=== PATIENT | female | born 1990 | race Caucasian/White ===

== ENCOUNTER 2016-12-13 18:08 | Emergency (ER) | payer SELFPAY ==
[~2016-12-13] VITALS: Ht 162.6 cm; Wt 127.5 kg
[~2016-12-13 18:08] MED LIST: MELO15TA14 PO; TRAM50TA2 PO
--- OUTSIDE RECORDS SUMMARY | 2016-12-13 18:13 | XMS REPORT | Continuity of Care Document ---
Author Author [facility] Organization [facility] Address Unknown Phone Unavailable Care Team Providers Care Senior Java Architect Name Role Phone Unverified, Unverified PCP Unavailable Source Comments Some departments are not documenting in the electronic medical record. If you do not see the information that you expected, contact Release of Information in the Health Information Management department at [phone] for further assistance in locating additional records.[facility] Active Allergies and Adverse Reactions Not on File Current Medications Not on file Active Problems Not on file Most Recent Encounters Date Type Specialty Providers Description 11/20/2016 Clinical High Risk Nuchal translucency of Support fetus on ultrasound (Primary Dx); Dichorionic diamniotic twin in first trimester Social History Tobacco Use Types Packs/Day Years Used Date Never Assessed Plan of Care Health Maintenance Due Date Last Done Comments Physical (Comprehensive) 1998 Exam Hpv Vaccines (#1) 2002 Pertussis Vaccine 2002 Tetanus Vaccine 2008 Cervical Cancer Screening 2012 Influenza Vaccine 06/21/2016 Results from Last 3 Months ULTRASOUND [facility] ORDER (11/20/2016)
--- NOTE | 2016-12-13 18:19 | ED Abdominal Pain ---
General Stated Complaint: RIGHT SIDE ABD PAIN;15 WEEKS Source of Information: Patient Exam Limitations: No Limitations History of Present Illness Time Seen By Provider: 18:18 Initial Comments To ER with right lower quadrant abdominal pain, epigastric pain and left lower quadrant abdominal pain. These are 3 separate locations of pain that began earlier this Afternoon after her transabdominal ultrasound "4d" done in [place]. She's had no complaints or difficulties with this or her last . She is 15 weeks' gestation with twins, . No cramping or vaginal discharge/vaginal bleeding. Timing/Duration: 1-2 Days Severity/Quality: Moderate Location: RUQ Radiation: No Radiation Associated Symptoms: Denies SymptomsNo Nausea/Vomiting Allergies and Home Medications Allergies Coded Allergies: Penicillins (Verified Allergy, Unknown, 09/12/15) acetaminophen (Verified Allergy, Unknown, 09/12/15) codeine (Verified Allergy, Unknown, 09/12/15) Home Medications Meloxicam 15 Mg Tablet #30 15 MG PO DAILY Prescribed by: BRYANT DE LA TORRE on 09/13/1546 Nitrofurantoin Monohyd/M-Cryst 100 Mg Capsule #14 1 TAB PO BID Prescribed by: PEGGY CRAIG on 12/13/16 1905 Tramadol HCl 50 Mg Tablet #20 50-100 MG PO Q6H PRN PRN rib pain Prescribed by: BRYANT DE LA TORRE on 09/13/1546 Review of Systems Constitutional: see HPI EENTM: No Symptoms Reported Respiratory: No Symptoms Reported Cardiovascular: No Symptoms Reported Gastrointestinal: See HPI Abdominal Pain Genitourinary: No Symptoms Reported Musculoskeletal: no symptoms reported Skin: no symptoms reported Psychiatric/Neurological: No Symptoms Reported Endocrine: No Symptoms Reported Hematologic/Lymphatic: No Symptoms Reported Past Fjqzjpe-Etcecy-Qstiat Hx Patient Social History Recent Foreign Travel: No Contact w/Someone Who Travel: No Seasonal Allergies Seasonal Allergies: No Surgeries HX Surgeries: Yes Surgeries: Adenoidectomy, Tonsillectomy Respiratory Hx Respiratory Disorders: No Cardiovascular Hx Cardiac Disorders: No Neurological Hx Neurological Disorders: No Genitourinary Hx Genitourinary Disorders: No Gastrointestinal Hx Gastrointestinal Disorders: No Musculoskeletal Hx Musculoskeletal Disorders: No Endocrine Hx Endocrine Disorders: No HEENT HX ENT Disorders: No Cancer Hx Cancer: No Psychosocial Hx Psychiatric Problems: No Integumentary HX Skin/Integumentary Disorder: No Blood Transfusions Hx Blood Disorders: No Adverse Reaction to a Blood Tr: No Physical Exam Vital Signs VS - Last 72 Hours, by Label 12/13/16 18:19 Temp 98.0 Pulse 100 Resp 16 B/P 143/93 Pulse Ox 98 Capillary Refill : General Appearance: WD/WN no apparent distress HEENT: PERRL/EOMI normal ENT inspection Neck: non-tender full range of motion Respiratory: no respiratory distress no accessory muscle use Gastrointestinal: normal bowel sounds non tender soft Extremities: normal range of motion non-tender Neurologic/Psychiatric: alert normal mood/affect oriented x 3 Skin: normal color warm/dry Progress/Results/Core Measures Results/Orders Lab Results Laboratory Tests Test 12/13/16 18:33 12/13/16 18:39 Range/Units Alanine Aminotransferase (ALT/SGPT) 53 0-55 U/L Albumin 3.4 3.2-4.5 G/DL Alkaline Phosphatase 48 40-136 U/L Anion Gap 10 5-14 MMOL/L Aspartate Amino Transf (AST/SGOT) 26 5-34 U/L BUN/Creatinine Ratio 16 Basophils # (Auto) 0.0 0.0-0.1 10^3/uL Basophils (%) (Auto) 0 0-10 % Blood Urea Nitrogen 9 7-18 MG/DL Calcium Level 9.4 8.5-10.1 MG/DL Carbon Dioxide Level 21 21-32 MMOL/L Chloride Level 105 98-107 MMOL/L Creatinine 0.58 L 0.60-1.30 MG/DL Eosinophils # (Auto) 0.0 0.0-0.3 10^3/uL Eosinophils (%) (Auto) 1 0-10 % Estimat Glomerular Filtration Rate > 60 Glucose Level 79 70-105 MG/DL Hematocrit 40 35-52 % Hemoglobin 13.9 11.5-16.0 G/DL Lymphocytes # (Auto) 1.8 1.0-4.0 X 10^3 Lymphocytes (%) (Auto) 20 12-44 % Mean Corpuscular Hemoglobin 28 25-34 PG Mean Corpuscular Hemoglobin Concent 35 32-36 G/DL Mean Corpuscular Volume 79 L 80-99 FL Mean Platelet Volume 10.6 H 7.4-10.4 FL Monocytes # (Auto) 0.5 0.0-1.0 X 10^3 Monocytes (%) (Auto) 6 0-12 % Neutrophils # (Auto) 6.5 1.8-7.8 X 10^3 Neutrophils (%) (Auto) 74 42-75 % Platelet Count 203 130-400 10^3/uL Potassium Level 3.9 3.6-5.0 MMOL/L Red Blood Count 5.04 4.35-5.85 10^6/uL Red Cell Distribution Width 13.1 10.0-14.5 % Sodium Level 136 135-145 MMOL/L Total Bilirubin 0.2 0.1-1.0 MG/DL Total Protein 6.8 6.4-8.2 G/DL White Blood Count 8.9 4.3-11.0 10^3/uL Urine Bacteria FEW H /HPF Urine Bilirubin NEGATIVE NEGATIVE Urine Casts NONE /LPF Urine Clarity CLEAR Urine Color YELLOW Urine Crystals NONE /LPF Urine Culture Indicated NO Urine Glucose (UA) NEGATIVE NEGATIVE Urine Ketones NEGATIVE NEGATIVE Urine Leukocyte Esterase 1+ H NEGATIVE Urine Mucus NEGATIVE /LPF Urine Nitrite NEGATIVE NEGATIVE Urine Protein NEGATIVE NEGATIVE Urine RBC NONE /HPF Urine RBC (Auto) NEGATIVE NEGATIVE Urine Specific [place] 1.025 H 1.016-1.022 Urine Squamous Epithelial Cells 10-25 H /HPF Urine Urobilinogen NORMAL NORMAL MG/DL Urine WBC 5-10 H /HPF Urine pH 5 5-9 My Orders Orders-PEGGY CRAIG APRN Ua Culture If Indicated (12/13/16 18:17) Cbc With Automated Diff (12/13/16 18:17) Comprehensive Metabolic Panel (12/13/16 18:17) Acetaminophen Tablet (Tylenol Tablet) (12/13/16 18:45) Medications Given in ED Current Medications Medications Dose Ordered Sig/Suri Route Start Time Stop Time Status Last Admin Dose Admin Acetaminophen 1,000 mg ONCE ONCE PO 12/13/16 18:45 12/13/16 18:46 DC 12/13/16 18:51 1,000 MG Vital Signs/I&O Vital Sign - Last 12Hours 12/13/16 18:19 Temp 98.0 Pulse 100 Resp 16 B/P 143/93 Pulse Ox 98 Departure Impression Impression: Primary Impression: Urinary tract infection Qualified Code: N30.00 - Acute cystitis without hematuria Additional Impression: Pain of round ligament Disposition: 01 HOME, SELF-CARE Condition: Stable Departure-Patient Inst. Decision time for Depature: 19:05 Referrals: MINDA PAYTON MD (PCP/Family) Primary Care Physician Patient Instructions: Urinary Tract Infection, Adult (DC) Add. Discharge Instructions: 1. Return to ER for any concerns 2. Follow-up with your doctor next week 3. Antibiotics as directed Scripts Nitrofurantoin Monohyd/M-Cryst (Macrobid 100 mg Capsule)100 Mg Capsule1 Tab PO BID #14 CAP Prov:PEGGY CRAIG APRN 12/13/16 Work/School Note: Work Release Form Date Seen in the Emergency Department: Dec 13, 2016 Return to Work: Dec 14, 2016 Other Restrictions Listed Below: No lifting greater than 5 pounds until cleared by physician Copy Copies To 1: ROSAS MEZA MD, PETER J APRN Dec 13, 2016 18:19
[2016-12-13 18:43] LABS: BASOPHILS % (AUTO) 0 % (0-10); EOSINOPHILS % (AUTO) 1 % (0-10); LYMPHOCYTES # (AUTO) 1.8 X 10^3 (1.0-4.0); LYMPHOCYTES % (AUTO) 20 % (12-44); MEAN CORPUSCULAR HEMOGLOBIN 28 PG (25-34); MEAN CORPUSCULAR HGB CONC 35 G/DL (32-36); MEAN CORPUSCULAR VOLUME 79 FL (80-99); MEAN PLATELET VOLUME 10.6 FL (7.4-10.4); MONOCYTES # (AUTO) 0.5 X 10^3 (0.0-1.0); MONOCYTES % (AUTO) 6 % (0-12); NEUTROPHILS # (AUTO) 6.5 X 10^3 (1.8-7.8); NEUTROPHILS % (AUTO) 74 % (42-75); PLATELET COUNT 203 10^3/uL (130-400); RED BLOOD COUNT 5.04 10^6/uL (4.35-5.85); RED CELL DISTRIBUTION WIDTH 13.1 % (10.0-14.5); WHITE BLOOD COUNT 8.9 10^3/uL (4.3-11.0)
[2016-12-13] MEDS ORDERED: ACETAMINOPHEN 500 MG TAB (TYLENOL) PO ONE (18:45)
[2016-12-13 18:47] LABS: BILIRUBIN,URINE NEGATIVE (NEGATIVE); KETONES,URINE NEGATIVE (NEGATIVE); LEUKOCYTE ESTERASE ,URINE 1+ (NEGATIVE); NITRITE,URINE NEGATIVE (NEGATIVE); PH,URINE 5 (5-9); PROTEIN,URINE NEGATIVE (NEGATIVE); UROBILINOGEN,URINE NORMAL (NORMAL)
[2016-12-13 19:03] LABS: ALANINE AMINOTRANSFERASE 53 U/L (0-55); ALBUMIN 3.4 G/DL (3.2-4.5); ASPARTATE AMINO TRANSFERASE 26 U/L (5-34); BILIRUBIN,TOTAL 0.2 MG/DL (0.1-1.0); BLOOD UREA NITROGEN 9 MG/DL (7-18); BUN/CREATININE RATIO 16; CALCIUM 9.4 MG/DL (8.5-10.1); CARBON DIOXIDE 21 MMOL/L (21-32); CREATININE SERUM 0.58 MG/DL (0.60-1.30); GFR ESTIMATED > 60; GLUCOSE 79 MG/DL (70-105); TOTAL PROTEIN 6.8 G/DL (6.4-8.2)
[2016-12-13] MEDS ORDERED: NITR-65 PO (19:05)
[2016-12-13 19:12] LABS: ANION GAP 10 MMOL/L (5-14); CHLORIDE 105 MMOL/L (98-107); POTASSIUM 3.9 MMOL/L (3.6-5.0); SODIUM 136 MMOL/L (135-145)
[2016-12-13 20:05] VITALS: BP 0/0
== END 2016-12-13 20:05 | disposition home or self-care (01) ==
LOC: EDUNIT# 18:08 → ER 18:09
DX: O23.42 Unspecified infection of urinary tract in pregnancy, second trimester (principal); O26.892 Other specified pregnancy related conditions, second trimester; Z3A.15 15 weeks gestation of pregnancy
CPT/HCPCS: 36415; 80053; 81000; 85025; 99282

== ENCOUNTER 2017-01-30 20:55 | Emergency (ER) | payer SELFPAY ==
[~2017-01-30] VITALS: Ht 162.6 cm; Wt 127.0 kg
[~2017-01-30 20:55] MED LIST changes: +NITR-65 PO
[2017-01-30] MEDS ORDERED: ASPI-586 PO (21:11)
[2017-01-30] MEDS ORDERED: PRENATAL (21:11)
[2017-01-30] MEDS ORDERED: CEFD300C3 PO (21:14)
--- NOTE | 2017-01-30 21:14 | ED Cough/URI ---
General Chief Complaint: Cough/Cold/Flu Symptoms Stated Complaint: COUGH/EAR ACHE Nursing Triage Note: PT C/O COUGH/CONGESTION X 1 WEEK. RIGHT EAR ACHE STARTING TODAY. BODY ACHES, HEADACHE. Source: patient Exam Limitations: no limitations History of Present Illness Time seen by provider: 21:11 Initial Comments To ER with reports of a cough and right earache for one week. The cough started first and was initially productive but is no longer productive. She denies sore throat or rhinorrhea. She started with a right earache about 2 days ago. She also has body aches. She is 22 weeks gestation with twins. Timing/Duration: getting worse Severity/Quality: productive cough Associated Symptoms: cough, fever/chills, shortness of breath Allergies and Home Medications Allergies Coded Allergies: Penicillins (Verified Allergy, Unknown, 09/12/15) acetaminophen (Verified Allergy, Unknown, 09/12/15) codeine (Verified Allergy, Unknown, 09/12/15) Home Medications Meloxicam 15 Mg Tablet, 15 MG PO DAILY, #30 Ref 0 Prescribed by: BRYANT DE LA TORRE on 09/13/15 0047 Nitrofurantoin Monohyd/M-Cryst 100 Mg Capsule, 1 TAB PO BID, #14 Prescribed by: PEGGY CRAIG on 12/13/16 1905 Tramadol HCl 50 Mg Tablet, 50-100 MG PO Q6H PRN for rib pain, #20 Ref 0 Prescribed by: BRYANT DE LA TORRE on 09/13/1546 Constitutional: see HPI, No chills, No fever EENTM: ear pain, see HPI Respiratory: see HPI, cough Cardiovascular: no symptoms reported Genitourinary: no symptoms reported Expected Date of Delivery: Jun 01, 2017 Musculoskeletal: no symptoms reported Skin: no symptoms reported Psychiatric/Neurological: No Symptoms Reported Hematologic/Lymphatic: No Symptoms Reported Past Zzfhwhz-Zdhfod-Ewbvvp Hx Patient Social History Alcohol Use: Denies Use Recreational Drug Use: No Smoking Status: Never a Smoker Recent Foreign Travel: No Contact w/Someone Who Travel: No Recent Infectious Disease Expo: No Recent Hopitalizations: No Immunizations Up To Date Date of Influenza Vaccine: Aug 21, 2016 Seasonal Allergies Seasonal Allergies: No Surgeries HX Surgeries: Yes Surgeries: Adenoidectomy, Tonsillectomy Respiratory Hx Respiratory Disorders: No Cardiovascular Hx Cardiac Disorders: No Neurological Hx Neurological Disorders: No Reproductive System : Yes Genitourinary Hx Genitourinary Disorders: No Gastrointestinal Hx Gastrointestinal Disorders: No Musculoskeletal Hx Musculoskeletal Disorders: No Endocrine Hx Endocrine Disorders: No HEENT HX ENT Disorders: No Cancer Hx Cancer: No Psychosocial Hx Psychiatric Problems: No Integumentary HX Skin/Integumentary Disorder: No Blood Transfusions Hx Blood Disorders: No Adverse Reaction to a Blood Tr: No Physical Exam Vital Signs Vital Sign - Last 12Hours 01/30/17 21:06 Temp 99.8 Pulse 100 Resp 16 B/P (MAP) 148/83 Capillary Refill : Less Than 3 Seconds General Appearance: WD/WN, no apparent distress Eyes: Bilateral Eye EOMI, Bilateral Eye Normal Inspection, Bilateral Eye PERRL HEENT: PERRL/EOMI, normal ENT inspection, pharynx normal, TM abnormal (R) (red and bulging) Neck: non-tender, full range of motion, No lymphadenopathy (R), No lymphadenopathy (L) Respiratory: lungs clear, normal breath sounds, no respiratory distress, no accessory muscle use Cardiovascular: regular rate, rhythm, no murmur Gastrointestinal: normal bowel sounds, non tender, soft Neurologic/Psychiatric: alert, normal mood/affect, oriented x 3 Skin: normal color, warm/dry Progress/Results/Core Measures Results/Orders My Orders Orders - PEGGY CRAIG APRN Cefdinir Capsule (Omnicef Capsule) (01/30/17 21:15) Hydrocodone/Apap 5/325 Tablet (Lortab 5 (01/30/17 21:15) Vital Signs/I&O Vital Sign - Last 12Hours 01/30/17 21:06 Temp 99.8 Pulse 100 Resp 16 B/P (MAP) 148/83 Blood Pressure Mean: 104 Departure Impression Impression: Primary Impression: Otitis media Additional Impression: Bronchitis Disposition: 01 HOME, SELF-CARE Condition: Stable Departure-Patient Inst. Decision time for Depature: 21:13 Referrals: NO,LOCAL PHYSICIAN (PCP) Primary Care Physician Patient Instructions: Ear Infections (Otitis Media) (DC) Add. Discharge Instructions: 1. Return to ER for any concerns 2. Follow-up with your manager finance later this week 3. Antibiotics as directed. Continue to use Tylenol as needed for discomfort or fevers All discharge instructions reviewed with patient and/or family. Voiced understanding. Scripts Cefdinir (Cefdinir) 300 Mg Capsule 300 MG PO BID, #14 CAP Prov: PEGGY CRAIG APRN 01/30/17 PEGGY CRAIG APRN Jan 30, 2017 21:14
[2017-01-30] MEDS ORDERED: CEFDINIR 300 MG (OMNICEF) CAP PO ONE (21:15)
[2017-01-30] MEDS ORDERED: HYDROcodone/APAP 5 MG/325 MG (LORTAB) TAB PO ONE (21:15)
[2017-01-30 21:35] VITALS: BP 137/86
== END 2017-01-30 21:35 | disposition home or self-care (01) ==
LOC: EDUNIT# 20:55 → ER 20:58
DX: H66.91 Otitis media, unspecified, right ear (principal); O99.512 Diseases of the respiratory system complicating pregnancy, second trimester; J40 Bronchitis, not specified as acute or chronic; Z3A.22 22 weeks gestation of pregnancy
CPT/HCPCS: 99282

== ENCOUNTER → 2017-03-05 | Outpatient (CLI) | payer MEDICAID ==
[~2017-03-05] MED LIST changes: +ASPI-586 PO; +CEFD300C3 PO; +PRENATAL
--- NOTE | 2017-03-05 15:00 | Diagnostic Imaging Report ---
INDICATION: Followup dichorionic diamniotic twin gestation. TECHNIQUE: Multiple real-time grayscale images were obtained over the gravid uterus. COMPARISON: 10/18/2016. FINDINGS: There are 2 live intrauterine pregnancies which were previously characterized as dichorionic and diamniotic. Baby A: Baby A is located on the maternal right and closer to the cervix, and is in cephalic presentation. Baby A has an average ultrasound age of 27 weeks and 5 days. The amount of amniotic fluid appears appropriate. Baby A heart rate is 136 beats per minute. Baby B: Baby B is on the left and near the fundus, and is in breech presentation. Baby B has average ultrasound age of 27 weeks and 3 days. The amount of amniotic fluid appears appropriate. Baby B heart rate is 142 beats per minute. Baby A biometric measurements are as follows: Biparietal 6.95 cm, age 28 weeks 0 days. Head circumference 25.67 cm, age 28 weeks 0 days. Abdominal circumference 23.29 cm, age 27 weeks 5 days. Femur length 5.04 cm, age 27 weeks 1 days. Sonographic estimate age: 27 weeks 5 days. Sonographic estimated date of delivery: 05/30/2017. Estimated Weight: 1081 gm (+/- 158 gm). LMP percentile: 39%. heart rate: 136 beats per minute. number: 1 of 2. IMPRESSION: 1. Live twin intrauterine pregnancies with concordant growth. Dictated by: Dictated on workstation # [id number]
== END ==
LOC: RAD 09:39
PROVIDERS: ATTEND Obstetrics & Gynecology
DX: O30.042 Twin pregnancy, dichorionic/diamniotic, second trimester (principal); Z3A.27 27 weeks gestation of pregnancy
CPT/HCPCS: 76810; 76816

== ENCOUNTER 2017-03-29 15:52 | Outpatient (RCR) | payer MEDICAID ==
[2017-04-12] MEDS ORDERED: PREN1TAB86 PO (08:14)
== END 2017-06-27 | disposition home or self-care (01) ==
LOC: LAB 15:52
PROVIDERS: ATTEND Family Medicine
DX: O12.13 Gestational proteinuria, third trimester (principal); O30.043 Twin pregnancy, dichorionic/diamniotic, third trimester
CPT/HCPCS: 84156

== ENCOUNTER → 2017-04-08 | Outpatient (CLI) | payer MEDICAID ==
--- NOTE | 2017-04-08 12:08 | Diagnostic Imaging Report ---
INDICATION: Twin , followup with biophysical profile evaluation. TECHNIQUE: Multiple real-time grayscale images were obtained over the gravid uterus. COMPARISON: 03/05/2017 FINDINGS: Fetus A is vertex and to the right of the uterus. Its heart rate is 135 beats per minute. The placenta is anterior. No placenta previa. Total JEANNIE is 6.9 cm. Fetus B heart rate is 146 beats per minutes. The placenta is posterior. No placenta previa. Biophysical profile parameters are evaluated for both babies with all criteria met for total score of 8 out of 8. Biometrical measurements are as follows: Biparietal 7.6 cm, age 30 weeks 4 days, at 5 percentile. Head circumference 28.9 cm, age 31 weeks 6 days, at 8 percentile. Abdominal circumference 28.1 cm, age 32 weeks 2 days, at 45 percentile. Femur length 6.3 cm, age 32 weeks 6 days, at 51 percentile. Sonographic estimate age: 32 weeks 0 days. Sonographic estimated date of delivery: 06/03/17. Estimated Weight: 1916 gm (+/- 280 gm). LMP percentile: 35%. heart rate: 135 beats per minute. number: 1 of 2. For Fetus B: The growth parameters are: Biparietal diameter: 32 weeks and 2 days, at 38 percentile. Head circumference: 33 weeks and 0 days, at 30 percentile. Abdominal circumference: 32 weeks and 2 days, at 46 percentile. Femur length: 32 weeks and 3 days, at 38 percentile. These average at: 32 weeks and 4 days concordant with gestational age of 32 weeks and 2 days based on VÍCTOR of 06/01/2017. IMPRESSION: 1. Live twin . 2. Biophysical profile score is 8 out of 8. The amniotic fluid index is within normal limits however it is less than the prior exam on both sides. 3. The biparietal diameter is at the 5th percentile and the head circumference is at the 8th percentile in baby A. Dictated by: Dictated on workstation # [id number]
== END ==
LOC: RAD 10:07
PROVIDERS: ATTEND Obstetrics & Gynecology
DX: Z36 Encounter for antenatal screening of mother (principal); O30.043 Twin pregnancy, dichorionic/diamniotic, third trimester; Z3A.32 32 weeks gestation of pregnancy
CPT/HCPCS: 76805; 76810; 76819

== ENCOUNTER 2017-04-11 21:22 | Outpatient (CLI) | payer MEDICAID ==
[~2017-04-11] VITALS: Ht 162.6 cm; Wt 133.9 kg
[2017-04-11 22:00] VITALS: BP 130/65
[2017-04-11 22:08] LABS: BILIRUBIN,URINE NEGATIVE (NEGATIVE); KETONES,URINE 1+ (NEGATIVE); LEUKOCYTE ESTERASE ,URINE 1+ (NEGATIVE); NITRITE,URINE NEGATIVE (NEGATIVE); PH,URINE 6 (5-9); PROTEIN,URINE 2+ (NEGATIVE); UROBILINOGEN,URINE 1 MG/DL (NORMAL)
[2017-04-11 22:15] VITALS: BP 126/62
[2017-04-11 22:30] VITALS: BP 121/60
[2017-04-11 22:45] VITALS: BP 139/67
[2017-04-11 23:00] VITALS: BP 136/69
[2017-04-11] MEDS ORDERED: BETAMETHASONE ACE/NA PHOS 6 MG/ML (CELESTONE SOLUSPAN) ONE (23:13)
[2017-04-11 23:45] VITALS: BP 147/106
[2017-04-12] VITALS (11 sets, daily range): BP systolic 102–148; BP diastolic 49–116
--- NOTE | 2017-04-12 00:02 | History & Physical-OB ---
OB - Chief Complaint & HPI Date/Time Date of Admission: Date of Admission: 04/11/17 Time Seen by Provider: 23:55 Chief Complaint/History OB-Reason for Admission/Chief: Hx : 2 Gestational Age in Weeks: 32 Gestational Age in Days: 5 Other reason for admission: Patient of Dr. Del Cid'jose presents with elevated BP from monitoring at home and LE swelling. Reports no other concerns, ctxs, vb, lof. Admission Nurse Assessment Rev: Yes History of Labs AB neg RI RPR NR HBsAg nR HIV NR GC neg GBS unknown Allergies and Home Medications Allergies Coded Allergies: Penicillins (Verified Allergy, Unknown, 09/12/15) acetaminophen (Verified Allergy, Unknown, 09/12/15) codeine (Verified Allergy, Unknown, 09/12/15) Home Medications Aspirin 81 Mg Tablet.dr, 81 MG PO DAILY, (Reported) Cefdinir 300 Mg Capsule, 300 MG PO BID, #14 Prescribed by: PEGGY CRAIG on 01/30/172113 [ ] , (Reported) OB - History Hx of Present Care: Yes Ultrasounds: Normal mid trimester US (di di twins) Obstetrical Complications: Gestational Hypertension Medical Complications: Other (BMI 50 morbid obesity) Delivery History Hx Blood Disorders: No Adverse Rxn to Tranfusion: No Patient Past Medical History RA Social History/Family History Recent Infectious Disease Expo: No Immunizations Date of Influenza Vaccine: Aug 21, 2016 OB - Admission Exam Physical Exam Date Seen by Provider: Apr 12, 2017 Time Seen by Provider: 23:55 HEENT: NCAT Heart: Rhythm Normal Lungs: Clear Abdomen: Gravid Cervical Dilatation: 2cm Effacement: 75% Station: -2 Membranes: Intact Heart Rate: 130's (140 twin b) Accelerations: Accelerations Present Decelerations: No Decelerations Short Term Variability: Present Nursing Home Variability: Average (6-25) Contractions on Admission: < 5 Minutes Apart Intensity: Mild Labs Laboratory Tests Test 04/11/17 21:45 Range/Units Urine Color YELLOW Urine Clarity CLEAR Urine pH 6 5-9 Urine Specific [place] 1.025 H 1.016-1.022 Urine Protein 2+ H NEGATIVE Urine Glucose (UA) 3+ H NEGATIVE Urine Ketones 1+ H NEGATIVE Urine Nitrite NEGATIVE NEGATIVE Urine Bilirubin NEGATIVE NEGATIVE Urine Urobilinogen 1 NORMAL MG/DL Urine Leukocyte Esterase 1+ H NEGATIVE Urine RBC (Auto) NEGATIVE NEGATIVE Urine RBC NONE /HPF Urine WBC 2-5 /HPF Urine Squamous Epithelial Cells 10-25 H /HPF Urine Crystals NONE /LPF Urine Bacteria FEW H /HPF Urine Casts NONE /LPF Urine Mucus LARGE H /LPF Urine Culture Indicated NO OB - Assessment/Plan/Diagnosis Plan Other Plan Patient admitted for obs, BMZ given. BP monitoring and PIH labs drawn. WIll consider dc in morning if stabilize contraction pattern, and BP. Discharge Diagnosis Diagnosis: 26 yo @ 32.5 Di Di Twins Uterine contractions- dialated to 2 Gestational HTN- w/o sig. protienuria BMI 50 GBS unknown TOYIN AMIN DO Apr 12, 2017 00:02
[2017-04-12 00:30] LABS: BASOPHILS % (AUTO) 0 % (0-10); EOSINOPHILS # (AUTO) 0.1 10^3/uL (0.0-0.3); EOSINOPHILS % (AUTO) 1 % (0-10); LYMPHOCYTES # (AUTO) 1.7 X 10^3 (1.0-4.0); LYMPHOCYTES % (AUTO) 21 % (12-44); MEAN CORPUSCULAR HEMOGLOBIN 23 PG (25-34); MEAN CORPUSCULAR HGB CONC 31 G/DL (32-36); MEAN CORPUSCULAR VOLUME 73 FL (80-99); MEAN PLATELET VOLUME 11.3 FL (7.4-10.4); MONOCYTES # (AUTO) 0.6 X 10^3 (0.0-1.0); MONOCYTES % (AUTO) 7 % (0-12); NEUTROPHILS # (AUTO) 6.1 X 10^3 (1.8-7.8); NEUTROPHILS % (AUTO) 72 % (42-75); PLATELET COUNT 197 10^3/uL (130-400); RED BLOOD COUNT 4.31 10^6/uL (4.35-5.85); WHITE BLOOD COUNT 8.5 10^3/uL (4.3-11.0)
[2017-04-12] MEDS ORDERED: CALCIUM CARBONATE 500 MG (TUMS) TAB.CHEW PO ONE (00:45)
[2017-04-12 00:47] LABS: ALANINE AMINOTRANSFERASE 15 U/L (0-55); ALBUMIN 2.6 GM/DL (3.2-4.5); ANION GAP 12 MMOL/L (5-14); ASPARTATE AMINO TRANSFERASE 14 U/L (5-34); BILIRUBIN,TOTAL 0.2 MG/DL (0.1-1.0); BLOOD UREA NITROGEN 9 MG/DL (7-18); BUN/CREATININE RATIO 16 (0-20); CALCIUM 8.7 MG/DL (8.5-10.1); CARBON DIOXIDE 17 MMOL/L (21-32); CHLORIDE 108 MMOL/L (98-107); CREATININE SERUM 0.58 MG/DL (0.60-1.30); GFR ESTIMATED > 60; GLUCOSE 115 MG/DL (70-105); HEMOLYSIS 0 (-100-29); ICTERUS 0.4 (-100-1.9); LIPEMIA 21 (-100-49); POTASSIUM 4.1 MMOL/L (3.6-5.0); SODIUM 137 MMOL/L (135-145); TOTAL PROTEIN 5.8 GM/DL (6.4-8.2); URIC ACID 3.9 MG/DL (2.6-7.2)
[2017-04-12 00:49] LABS: PROTEIN/CREATININE RATIO 0.17
[2017-04-12] MEDS ORDERED: LACTATED RINGERS 1,000 ML IV SCH (01:00)
[2017-04-12] MEDS ORDERED: NIFEdipine 10 MG CAPS (WOMEN'S SERVICES ONLY!!!) PO ONE ×3 (01:47→07:59)
[2017-04-12] MEDS ORDERED: ACETAMINOPHEN 500 MG TAB (TYLENOL) PO ONE (03:15)
[2017-04-12] MEDS ORDERED: LACTATED RINGERS 1,000 ML IV ONE (05:30)
[2017-04-12] MEDS ORDERED: CALCIUM CARBONATE 500 MG (TUMS) TAB.CHEW ONE (06:20)
[2017-04-12] MEDS ORDERED: CALCIUM CARBONATE 500 MG (TUMS) TAB.CHEW PO NR (06:30)
[2017-04-12] MEDS ORDERED: NIFEdipine ER 30 MG (PROCARDIA XL) TAB PO ONE (07:30)
--- NOTE | 2017-04-12 07:51 | Progress Note-Standard ---
Standard Progress Note Progress Notes/Assess & Plan Date Seen 04/12/17 Time Seen by Provider: 07:51 Assess & Plan/Chief Complaint HD#2 Ariana is a 26 y/o @ 32w6d by L=9 well known to me from clinic who was admitted overnight by my partner Dr. Sinha. This AM, upon my arrival Ariana is crying through ctx. She initially presented to the hospital due to concerns for HTN at home with swelling and headache. She then began wander and cervix was changed from 2 to 2.5/1/-2, with contractions q 3-4 mins on the monitor (although they are difficult to trace). O: VS - Last 72 Hours, by Label 04/11/17 04/11/17 04/11/17 04/11/17 22:00 22:15 22:30 22:45 Temp 99.7 Pulse 106 100 96 103 Resp 18 18 18 18 B/P (MAP) 130/65 126/62 121/60 139/67 Pulse Ox 99 98 O2 Delivery Room Air Room Air Room Air 04/11/17 04/11/17 04/12/17 04/12/17 23:00 23:45 00:00 01:00 Pulse 97 92 93 Resp 18 18 18 18 B/P (MAP) 136/69 147/106 122/65 O2 Delivery Room Air Room Air Room Air Room Air 04/12/17 04/12/17 04/12/17 04/12/17 02:00 03:00 04:00 05:00 Pulse 86 106 121 106 Resp 18 18 18 18 B/P (MAP) 133/68 102/52 133/73 129/68 O2 Delivery Room Air Room Air Room Air Room Air 04/12/17 04/12/17 04/12/17 06:00 06:20 07:00 Pulse 106 100 101 Resp 18 18 18 B/P (MAP) 119/66 148/116 128/49 O2 Delivery Room Air Room Air Room Air Gen: Moderate distress, crying with contractions Abd: Soft, nttp, gravid Ext: 1+ pitting edema to mid tibia bilaterally SVE: 2+/1/-2, baby A cephalic TOCO: 3/10 with uterine irritability (difficulty tracing) Fetus A: 120-125/mod duy/reactive Fetus B: 125-130/mod duy/reactive Laboratory Tests Test 04/11/17 21:45 04/12/17 00:30 Range/Units Urine Color YELLOW Urine Clarity CLEAR Urine pH 6 5-9 Urine Specific [place] 1.025 H 1.016-1.022 Urine Protein 2+ H 38 H 6-12 MG/DL Urine Glucose (UA) 3+ H NEGATIVE Urine Ketones 1+ H NEGATIVE Urine Nitrite NEGATIVE NEGATIVE Urine Bilirubin NEGATIVE NEGATIVE Urine Urobilinogen 1 NORMAL MG/DL Urine Leukocyte Esterase 1+ H NEGATIVE Urine RBC (Auto) NEGATIVE NEGATIVE Urine RBC NONE /HPF Urine WBC 2-5 /HPF Urine Squamous Epithelial Cells 10-25 H /HPF Urine Crystals NONE /LPF Urine Bacteria FEW H /HPF Urine Casts NONE /LPF Urine Mucus LARGE H /LPF Urine Culture Indicated NO Urine Creatinine 224 H 30-125 MG/DL Urine Protein/Creatinine Ratio 0.17 A/P: 26 y/o @ 32w6d by L=9 well known to me from clinic who was admitted overnight by my partner Dr. Sinha - please see his H&P for complete details. Di/di twin gestation Class III obesity (BMI 51) Possible cHTN (BPs normal this , documented elevated outside of , Pro:Cr 0.07 at start of and HELLP labs unremarkable) vs gestational HTN H/o GDM (normal early A1C, 1 hr GTT normal at 25 wga) +Chlamydia this (neg LASHELL) Anxiety/depression on no meds Twin B with reversed ductus on NT (normal echo) Twin A with head circumference 3%tile at 32 wga ([facility] sono pending) Reviewed course thus far - has received BTMZ and procardia (one dose at 0155 this AM). Upon my arrival, Ariana is in significant pain with contractions. I am concerned that this along with her (somewhat minimal) cervical change represents PTL and I explained to Ariana that our target gestational age at delivery at [facility] is 34 wga due to our limited nursery capabilities, and I would recommend transfer to a tertiary care facility with NICU. She understands. Just had growth ultrasound at [facility] this Saturday due to concern for abnormal head growth so will defer that at this time. Will start ampicillin, continue oral procardia (20 mg ordered now) and discuss transfer to (Ariana prefers this as she has been seen there). I did review with her that her HELLP labs are unremarkable; she has had one treatable BP (148 /116) which resolved subsequently without treatment overnight. Labs Laboratory Tests 04/11/17 00:20 ROSAS MEZA MD Apr 12, 2017 07:51
[2017-04-12] MEDS ORDERED: ceFAZolin 2 GM/50 ML NS 50 ML ONE (08:00)
[2017-04-12] MEDS ORDERED: PREN1TAB86 PO (08:14)
[2017-04-12] MEDS ORDERED: NIFEdipine 10 MG CAPS (WOMEN'S SERVICES ONLY!!!) PO NR (08:15)
[2017-04-12] MEDS ORDERED: ceFAZolin 2 GM/50 ML NS 50 ML IV NR (08:15)
[2017-04-12] MEDS ORDERED: BETAMETHASONE ACE/NA PHOS 6 MG/ML (CELESTONE SOLUSPAN) IM SCH (09:00)
== END 2017-04-12 09:45 | disposition designated cancer center or children's hospital (05) ==
LOC: WSo 21:22 → LDRP 21:22 → WSo 04-12 09:45
PROVIDERS: ATTEND Obstetrics & Gynecology
DX: O60.03 Preterm labor without delivery, third trimester (principal); O30.043 Twin pregnancy, dichorionic/diamniotic, third trimester; O99.213 Obesity complicating pregnancy, third trimester; E66.9 Obesity, unspecified; Z68.43 Body mass index [BMI] 50.0-59.9, adult; O99.343 Other mental disorders complicating pregnancy, third trimester; F32.9 Major depressive disorder, single episode, unspecified; F41.9 Anxiety disorder, unspecified; Z3A.32 32 weeks gestation of pregnancy
CPT/HCPCS: 36415; 80053; 81000; 82570; 84156; 84550; 85025; 96361; 96372; 96374; 99214

== ENCOUNTER 2017-04-15 09:59 | Outpatient (CLI) | payer MEDICAID ==
[~2017-04-15] VITALS: Ht 162.6 cm; Wt 136.2 kg
[2017-04-15] VITALS (9 sets, daily range): BP systolic 108–134; BP diastolic 44–72
[~2017-04-15 09:59] MED LIST changes: +PREN1TAB86 PO
[2017-04-15 11:18] LABS: PROTEIN/CREATININE RATIO 0.28
[2017-04-15 11:19] LABS: BASOPHILS % (AUTO) 0 % (0-10); EOSINOPHILS % (AUTO) 0 % (0-10); LYMPHOCYTES % (AUTO) 7 % (12-44); MEAN CORPUSCULAR HEMOGLOBIN 23 PG (25-34); MEAN CORPUSCULAR HGB CONC 31 G/DL (32-36); MEAN CORPUSCULAR VOLUME 73 FL (80-99); MEAN PLATELET VOLUME 11.9 FL (7.4-10.4); MONOCYTES # (AUTO) 1.1 X 10^3 (0.0-1.0); MONOCYTES % (AUTO) 8 % (0-12); NEUTROPHILS # (AUTO) 11.6 X 10^3 (1.8-7.8); NEUTROPHILS % (AUTO) 84 % (42-75); PLATELET COUNT 206 10^3/uL (130-400); RED BLOOD COUNT 4.05 10^6/uL (4.35-5.85); RED CELL DISTRIBUTION WIDTH 15.5 % (10.0-14.5); WHITE BLOOD COUNT 13.8 10^3/uL (4.3-11.0)
[2017-04-15 11:36] LABS: ANISOCYTOSIS SLIGHT; BAND NEUTROPHILS 4 %; BASOPHILS % (MANUAL) 0 %; EOSINOPHILS % (MANUAL) 0 %; LYMPHOCYTES % (MANUAL) 9 %; MICROCYTOSIS SLIGHT; NEUTROPHILS % (MANUAL) 79 %
[2017-04-15 11:49] LABS: ALANINE AMINOTRANSFERASE 60 U/L (0-55); ANION GAP 8 MMOL/L (5-14); ASPARTATE AMINO TRANSFERASE 44 U/L (5-34); BILIRUBIN,TOTAL 0.3 MG/DL (0.1-1.0); BLOOD UREA NITROGEN 8 MG/DL (7-18); BUN/CREATININE RATIO 14 (0-20); CARBON DIOXIDE 24 MMOL/L (21-32); CHLORIDE 107 MMOL/L (98-107); CREATININE SERUM 0.57 MG/DL (0.60-1.30); GFR ESTIMATED > 60; GLUCOSE 112 MG/DL (70-105); HEMOLYSIS -1 (-100-29); ICTERUS 0.4 (-100-1.9); LACTATE DEHYDROGENASE 431 U/L (125-220); LIPEMIA 1 (-100-49); POTASSIUM 3.8 MMOL/L (3.6-5.0); SODIUM 139 MMOL/L (135-145); TOTAL PROTEIN 6.6 GM/DL (6.4-8.2)
--- NOTE | 2017-04-15 11:51 | Diagnostic Imaging Report ---
PROCEDURE: CT angiography of the chest with contrast. TECHNIQUE: Multiple contiguous axial images were obtained through the chest after uneventful bolus administration of intravenous contrast. Reconstructed CTA MIP acquisitions were also performed. INDICATION: Chest pain. Tachycardia. Shortness of breath. Concern for PE. 125 ML of Omnipaque 350 is administered intravenously. FINDINGS: Please note that there is breathing motion artifact which could obscure particularly subtle abnormality. Moderate opacification of the pulmonary arteries are seen. There is no central pulmonary embolism. Multiple peripheral branches are obscured by the motion artifact with no definitive pulmonary embolism identified. The thoracic aorta is normal in caliber. The heart size is normal. No pericardial effusion. There is a small left pleural effusion and minimal right pleural effusion. Patchy areas of consolidation in the left lung worse in the midlung zone is seen with minimal right basilar consolidation also seen. There is no mediastinal mass or significant lymphadenopathy in the mediastinum or peter. The osseous structures appear grossly unremarkable. IMPRESSION: 1. Asymmetric patchy consolidation in the lungs mostly on the left side, with associated small left pleural effusion is likely secondary to pneumonia. Asymmetric pulmonary edema or hemorrhage are less likely considerations. 2. No definite evidence of pulmonary embolism. Segments of lobar and segmental arteries are not well evaluated on this exam due to breathing motion artifact however. The findings were discussed with Dr. Del Cid at time of dictation. Dictated by: Dictated on workstation # [id number]
--- NOTE | 2017-04-15 12:09 | Diagnostic Imaging Report ---
EXAMINATION: PA and lateral views of the chest. INDICATION: Shortness of breath. The patient is . FINDINGS: There are patchy areas of mixed interstitial and airspace consolidation in the left perihilar and basilar region. The right infrahilar region demonstrates prominent peribronchovascular markings. A minimal amount of fluid along the minor fissure is seen. No obvious effusion. The heart size is slightly prominent. No pneumothorax. The mediastinum and peter appear unremarkable. IMPRESSION: Patchy mixed infiltrates involving mostly the perihilar and basilar regions of the left lung. This is favored to be related to pneumonia, possibly atypical infection rather than asymmetric pulmonary edema. Correlate clinically. Dictated by: Dictated on workstation # [id number]
--- NOTE | 2017-04-15 12:16 | History & Physical-OB ---
OB - Chief Complaint & HPI Date/Time Date of Admission: Date of Admission: Time Seen by Provider: 10:30 Chief Complaint/History OB-Reason for Admission/Chief: Hx : 2 Hx Para: 1 Expected Date of Delivery: Jun 01, 2017 Gestational Age in Weeks: 33 Gestational Age in Days: 2 Other reason for admission: Ariana is a 26 y/o @ 33w2d by L=9 presenting with worsening SOA. Reports she has had left sided chest pain with deep inspiration since last night , and then developed shortness of breath this AM. She was discharged home from [facility] yesterday after being transferred to their facility for labor; was dilated to 2.5cm but did not progress. She did receive betamethasone at that time. She reports increased edema in her bilateral legs as well as feels as though she is retaining "a lot of fluid". Both babies active, no LOF VB. Occasional CTX but not painful like previously. Denies h/a currently but has had h/a off and on. c/b: 1- Class III obesity (BMI 51) 2- H/o placental abruption in previous 3- Possible cHTN (BPs normal this but documented elevated prior to , Pro:Cr ratio 0.07 in first trimester, HELLP labs unremarkable in first trimester) 4- H/o GDM in first , normal testing in first and third trimesters 5- H/o chlamydia this with neg LASHELL and third trim screen 6- Anxiety depression on no meds 7- Twin B with reversed ductus on NT, normal echo 8- Twin A with head circumference 3%tile at [facility] (overall 35%tile) History of Labs AB neg Antibody neg in second trim RI Hep B neg Hep C neg HIV neg RPR NR GC neg, CT pos (treated and LASHELL neg) Allergies and Home Medications Allergies Coded Allergies: Penicillins (Verified Allergy, Unknown, 09/12/15) acetaminophen (Verified Allergy, Unknown, 09/12/15) codeine (Verified Allergy, Unknown, 09/12/15) Home Medications Aspirin 81 Mg Tablet.dr, 81 MG PO DAILY, (Reported) Vit W-Ca,Fe,FA(<1 mg) 1 Each Tablet, 1 EACH PO DAILY, (Reported) OB - History Hx of Present Care: Yes Ultrasounds: Abnormal US findings (di/di twins, B with reversed ductus, A with 3%tile HC) Obstetrical Complications: Other (di/di twins) Medical Complications: Other (class III obesity) Information Induced Hypertension: No Maternal Gestational Diabetes: Yes Hemorrhage: No Obstetrical History Hx : 2 Hx Para: 1 Delivery History Hx Blood Disorders: No Adverse Rxn to Tranfusion: No Patient Past Medical History see above Social History/Family History Recent Infectious Disease Expo: No Immunizations Tetanus Booster (TDap): Unknown (declines due to lutheran reasons) Date of Influenza Vaccine: Aug 21, 2016 Rubella: immune RPR/VDRL: Negative HBsAG: Negative OB - Admission Exam Physical Exam Time Seen by Provider: 12:40 Vitals: Vital Signs 04/15/17 10:53 O2 Delivery Room Air Heart: Other (tachycardic otherwise wnl) Lungs: Crackles (in bilateral lungs, L > R) Abdomen: Non tender Extremities: Edema (2+ pitting edema bilaterally to level of knee) Reflexes: Hyperreflexia Present Heart Rate: 140's (A 145/mod duy/reactive, B 140-145 mod duy/reactive) Labs Laboratory Tests Test 04/15/17 10:40 04/15/17 11:10 Range/Units Urine Protein 29 H 6-12 MG/DL Urine Creatinine 102 30-125 MG/DL Urine Protein/Creatinine Ratio 0.28 White Blood Count 13.8 H 4.3-11.0 10^3/uL Red Blood Count 4.05 L 4.35-5.85 10^6/uL Hemoglobin 9.3 L 11.5-16.0 G/DL Hematocrit 30 L 35-52 % Mean Corpuscular Volume 73 L 80-99 FL Mean Corpuscular Hemoglobin 23 L 25-34 PG Mean Corpuscular Hemoglobin Concent 31 L 32-36 G/DL Red Cell Distribution Width 15.5 H 10.0-14.5 % Platelet Count 206 130-400 10^3/uL Mean Platelet Volume 11.9 H 7.4-10.4 FL Neutrophils (%) (Auto) 84 H 42-75 % Lymphocytes (%) (Auto) 7 L 12-44 % Monocytes (%) (Auto) 8 0-12 % Eosinophils (%) (Auto) 0 0-10 % Basophils (%) (Auto) 0 0-10 % Neutrophils # (Auto) 11.6 H 1.8-7.8 X 10^3 Lymphocytes # (Auto) 1.0 1.0-4.0 X 10^3 Monocytes # (Auto) 1.1 H 0.0-1.0 X 10^3 Eosinophils # (Auto) 0.0 0.0-0.3 10^3/uL Basophils # (Auto) 0.0 0.0-0.1 10^3/uL Neutrophils % (Manual) 79 % Lymphocytes % (Manual) 9 % Monocytes % (Manual) 8 % Eosinophils % (Manual) 0 % Basophils % (Manual) 0 % Band Neutrophils 4 % Anisocytosis SLIGHT Microcytosis SLIGHT Sodium Level 139 135-145 MMOL/L Potassium Level 3.8 3.6-5.0 MMOL/L Chloride Level 107 98-107 MMOL/L Carbon Dioxide Level 24 21-32 MMOL/L Anion Gap 8 5-14 MMOL/L Blood Urea Nitrogen 8 7-18 MG/DL Creatinine 0.57 L 0.60-1.30 MG/DL Estimat Glomerular Filtration Rate > 60 BUN/Creatinine Ratio 14 0-20 Glucose Level 112 H 70-105 MG/DL Uric Acid 5.0 2.6-7.2 MG/DL Calcium Level 9.0 8.5-10.1 MG/DL Total Bilirubin 0.3 0.1-1.0 MG/DL Aspartate Amino Transf (AST/SGOT) 44 H 5-34 U/L Alanine Aminotransferase (ALT/SGPT) 60 H 0-55 U/L Alkaline Phosphatase 131 40-136 U/L Lactate Dehydrogenase 431 H 125-220 U/L Total Protein 6.6 6.4-8.2 GM/DL Albumin 3.0 L 3.2-4.5 GM/DL CT per PE protocol - no evidence VTE, possible left sided atypical pneumonia CXR - pneumonia vs OB - Assessment/Plan/Diagnosis Plan Other Plan 26 y/o @ 33w2d presenting with acute SOA with di/di twin and now severe pre-eclampsia (based on probable pulmonary edema and transaminitis), also c/b: 1- Class III obesity (BMI 51) 2- H/o placental abruption in previous 3- Possible cHTN (BPs normal this but documented elevated prior to , Pro:Cr ratio 0.07 in first trimester, HELLP labs unremarkable in first trimester) 4- H/o GDM in first , normal testing in first and third trimesters 5- H/o chlamydia this with neg LASHELL and third trim screen 6- Anxiety depression on no meds 7- Twin B with reversed ductus on NT, normal echo 8- Twin A with head circumference 3%tile at [facility] (overall 35%tile) 9- Rh neg s/p RhoGAM 1st trim and 3rd trim (received again at [facility] this weekend ) 10- S/p BTMZ 04/12-04/13 I reviewed with Ariana that although her BPs are stable, she now meets criteria for severe pre-eclampsia based on quadrupling of her ALT (15 to 60), and I am suspicious that the atypical pneumonia picture noted on imaging today is in fact pulmonary edema (although it is not typical to see unilateral). Will give lasix 20 mg IV x 1 to try and improve lung function. Start magnesium sulfate for seizure ppx, 4g loading and 2g/hour. Has had BTMZ this weekend. Given these findings, I think Ariana needs to be evaluated further for consideration for delivery in a facility that has NICU capabilities for 33 week twins. I spoke with Dr. Marshall who agrees to take her in transfer. Very much appreciate his assistance in her care. BSUS performed with twins in vertex/vertex presentation. Did review that she may be a candidate for vaginal delivery but this will be up to her physician team at [place]. Of note, just before transfer, pt noted shaking chills and temp was 100.4F ( does have mild leukocytosis as well which can be seen in , temp was 99F when first presenting to triage). Antibiotics were NOT started prior to transfer. She may in fact have atypical pneumonia, but even with this finding, with the noted quadrupling of ALT in the last 3 days, would recommend transfer and consideration for delivery. ROSAS MEZA MD Apr 15, 2017 12:16
[2017-04-15] MEDS ORDERED: D5 LR IV SOLUTION 1,000 ML IV SCH (12:48)
[2017-04-15] MEDS ORDERED: MAGNESIUM 2 GM/50 ML IVPB 50 ML IV ONE (12:52)
[2017-04-15] MEDS ORDERED: LACTATED RINGERS 1,000 ML IV ONE (12:52)
[2017-04-15] MEDS ORDERED: MAGNESIUM 4 GM/100 ML IVPB 100 ML IV SCH (13:00)
[2017-04-15] MEDS ORDERED: CALCIUM GLUC. 10% 4.65 MEQ/10 ML VIAL IV PRN (13:00)
[2017-04-15] MEDS ORDERED: FUROSEMIDE 40 MG/4 ML INJ (LASIX) IVP ONE (13:00)
[2017-04-15] MEDS ORDERED: LACTATED RINGERS 1,000 ML IV SCH (13:15)
[2017-04-15] MEDS ORDERED: MAGNESIUM SULFATE DRIP 500 ML IV SCH (13:18)
== END 2017-04-15 13:52 | disposition short-term general hospital (02) ==
LOC: WSo 09:59 → LDRP 10:00 → WSo 13:52
PROVIDERS: ATTEND Obstetrics & Gynecology
DX: O14.93 Unspecified pre-eclampsia, third trimester (principal); O30.043 Twin pregnancy, dichorionic/diamniotic, third trimester; O99.213 Obesity complicating pregnancy, third trimester; E66.9 Obesity, unspecified; Z68.43 Body mass index [BMI] 50.0-59.9, adult; O99.343 Other mental disorders complicating pregnancy, third trimester; F32.9 Major depressive disorder, single episode, unspecified; F41.9 Anxiety disorder, unspecified; Z3A.33 33 weeks gestation of pregnancy
CPT/HCPCS: 36415; 71020; 71275; 80053; 82570; 83615; 84156; 84550; 85007; 85027; 96361; 96374; 96376; 99214